=== PATIENT | male | born 1940 | race Caucasian/White ===

== ENCOUNTER 2023-09-26 06:14 | Emergency (ER) | payer MEDICARE, BC, SELFPAY ==
[2023-09-26] VITALS (14 sets, daily range): BP systolic 118–162; BP diastolic 58–98; BMI 24.6
--- NOTE | 2023-09-26 07:18 | ED.GENMED ---
History of Present Illness
<JEFFREY Gill - Last Filed: 09/26/23 14:03>
General
Chief Complaint: Chest Pain
Source: patient and spouse
Exam Limitations: none
Time Seen by Provider: 09/26/23 07:12
Nursing documentation reviewed up to this point in time: agreed with
Travel History
Have you had any contact with someone who has COVID-19?: No
Do you have any symptoms of coronavirus? Fever > 100 degrees, chills, cough, shortness of breath, sore throat, loss of taste or smell, muscle aches, or headache?: No
History of Present Illness
History of Present Illness:
Patient is a 3-year-old male with a history of MS COPD stroke presents to the ER for evaluation. reports patient woke up around 530 this morning complaining of chest pain. He had told him that he felt like something was sitting on his chest.
She reports he and he still has what sounds and a wet cough. This is not necessarily new. He has cough with his COPD. 2 cardiac troponins negative no PE they read as atelectasis PE noncardiac he has no history of cardiac disease he has COPD
Is also so he has this chronic cough no fever normal white count completely normal labs She denies any fevers.
He has no cardiac history. He is not O2 dependent. With diagnosis of MS he is wheelchair-bound.
Patient went to the ER regular. He does complain of anterior chest pain. He denies any radiation. He denies any associated shortness of breath nausea vomiting with it. Denies any injury or fall.
Past History
<JEFFREY Gill - Last Filed: 09/26/23 14:03>
Past History
ED Past Medical History: COPD, GERD, Seizures and Other (Multiple sclerosis, esophageal ulcers with upper GI bleed multiple episodes. Aspiration pneumonia, , prostatic hypertrophy, wheelchair-bound, skin cancer, history of alcohol abuse)
ED Past Surgical History: Other (Port-A-Cath, PEG tube, hemorrhoidectomy)
Social History
Tobacco: Former smoker
Alcohol: Former
Drug: None
Personal:
Living: assisted living
Employment: Retired
Family History
Family History: Other (Noncontributory)
Review of Systems
<JEFFREY Gill - Last Filed: 09/26/23 14:03>
Review of Systems
Allergies reviewed?: Yes
Other source history: family
All Other Systems: ROS reviewed and negative except as documented in HPI and ROS
Constitutional: Denies fever
Respiratory: Reports cough
Cardiac: Reports chest pain; Denies diaphoresis, palpitations or syncope
ABD/GI: Reports no symptoms
Musculoskeletal: Reports no symptoms
Skin: Reports no symptoms
Neurological: Reports no symptoms
Psychiatric: Reports no symptoms
Phy Exam
<JEFFREY Gill - Last Filed: 09/26/23 14:03>
General Physical Exam
General Presentation: no apparent distress
General age: appears stated age
General Skin: dry
Scores
<JEFFREY Gill - Last Filed: 09/26/23 14:03>
Heart Score for Chest Pain Patients
STEMI patient?: Not applicable
Course
<JEFFREY Gill - Last Filed: 09/26/23 14:03>
Orders/Labs/Results
Orders:
Orders
09/26/23 06:21
Electrocardiogram (*1) Urgent
Reason for Study: Chest Pain
09/26/23 06:22
EKG- Treatment ONCE
09/26/23 06:33
Complete Blood Count/With Diff Urgent
09/26/23 07:05
Troponin I Urgent
09/26/23 07:06
Comprehensive Metabolic Panel Urgent
09/26/23 07:10
CR Chest - 2 Views Urgent
Comment:
Reason For Exam: chest pain and cough
09/26/23 07:39
Ketorolac [Toradol] 15 mg IV NOW STA
09/26/23 08:16
CT Chest Pe Study Urgent
Comment:
Reason For Exam: cp bedbound
09/26/23 10:08
EKG [Electrocardiogram (*1)] Urgent
Reason for Study: Chest Pain
EKG- Treatment ONCE
09/26/23 10:14
Troponin I Urgent
09/26/23 10:26
Morphine Sulfate 2 mg IV NOW STA
09/26/23 12:21
Rectal Temp- Treatment ONCE
09/26/23 12:22
COVID-19 Antigen Urgent
Source: Nasal Swab
UA Reflex to Culture [Urinalysis Reflex To Culture] Urgent
Date Specimen was Collected: 09/26/23
Time Specimen was Collected: 12:22
Urine Microscopic Reflex Cult Urgent
Influenza A+B Rapid Molecular Urgent
FRANKLYN Source: Nasal Swab
Specimen Description:
09/26/23 13:40
Acetaminophen [Tylenol] 650 mg PO NOW STA
09/26/23 13:52
0.9% Sodium Chloride 500 ml [Nss] 500 ml IV BOLUS
09/26/23 13:56
Azithromycin [Zithromax] 500 mg PO NOW STA
Abnormal Lab Results
09/26/23 09/26/23
06:33 12:22
Absolute Neuts (auto) 9.0 H 10^3/uL
(1.4-6.5)
Absolute Lymphs (auto) 0.8 L 10^3/uL
(1.2-3.4)
Neutrophils % 86.1 H %
(42.2-75.2)
Lymphocytes % 7.9 L %
(20.5-51.1)
Leukocyte Esterase Rfl Trace A
(Negative)
09/26/23 06:33
09/26/23 07:06
Vital Signs
Initial and Last Documented VS:
Initial Vital Signs
Pulse Resp Pulse Ox
88 18 93
09/26/23 06:18 09/26/23 06:18 09/26/23 06:18
Last Documented Vital Signs
Temp Pulse Resp BP Pulse Ox
101.5 F H 96 20 157/71 98
09/26/23 12:21 09/26/23 10:25 09/26/23 10:25 09/26/23 10:25 09/26/23 10:25
Mid Level Developer consulted with Physician
Mid Level Developer consulted with physician?: Yes
Name of Physician Consulted: augustine
<Thomas Schreiber, DO - Last Filed: 09/26/23 11:25>
Orders/Labs/Results
Orders:
Orders
09/26/23 06:21
Electrocardiogram (*1) Urgent
Reason for Study: Chest Pain
09/26/23 06:22
EKG- Treatment ONCE
09/26/23 06:33
Complete Blood Count/With Diff Urgent
09/26/23 07:05
Troponin I Urgent
09/26/23 07:06
Comprehensive Metabolic Panel Urgent
09/26/23 07:10
CR Chest - 2 Views Urgent
Comment:
Reason For Exam: chest pain and cough
09/26/23 07:39
Ketorolac [Toradol] 15 mg IV NOW STA
09/26/23 08:16
CT Chest Pe Study Urgent
Comment:
Reason For Exam: cp bedbound
09/26/23 10:08
EKG [Electrocardiogram (*1)] Urgent
Reason for Study: Chest Pain
EKG- Treatment ONCE
09/26/23 10:14
Troponin I Urgent
09/26/23 10:26
Morphine Sulfate 2 mg IV NOW STA
09/26/23 12:21
Rectal Temp- Treatment ONCE
09/26/23 12:22
COVID-19 Antigen Urgent
Source: Nasal Swab
UA Reflex to Culture [Urinalysis Reflex To Culture] Urgent
Date Specimen was Collected: 09/26/23
Time Specimen was Collected: 12:22
Urine Microscopic Reflex Cult Urgent
Influenza A+B Rapid Molecular Urgent
FRANK[place]N Source: Nasal Swab
Specimen Description:
09/26/23 13:40
Acetaminophen [Tylenol] 650 mg PO NOW STA
09/26/23 13:52
0.9% Sodium Chloride 500 ml [Nss] 500 ml IV BOLUS
09/26/23 13:56
Azithromycin [Zithromax] 500 mg PO NOW STA
Abnormal Lab Results
09/26/23 09/26/23
06:33 12:22
Absolute Neuts (auto) 9.0 H 10^3/uL
(1.4-6.5)
Absolute Lymphs (auto) 0.8 L 10^3/uL
(1.2-3.4)
Neutrophils % 86.1 H %
(42.2-75.2)
Lymphocytes % 7.9 L %
(20.5-51.1)
Leukocyte Esterase Rfl Trace A
(Negative)
09/26/23 06:33
09/26/23 07:06
Vital Signs
Initial and Last Documented VS:
Initial Vital Signs
Pulse Resp Pulse Ox
88 18 93
09/26/23 06:18 09/26/23 06:18 09/26/23 06:18
Last Documented Vital Signs
Temp Pulse Resp BP Pulse Ox
101.5 F H 96 20 157/71 98
09/26/23 12:21 03/15/24 10:25 09/26/23 10:25 09/26/23 10:25 09/26/23 10:25
<JEFFREY Gill - Last Filed: 09/26/23 14:03>
MDM/Problems Addressed
Differential Diagnosis Includes:
Not limited to muscular pain, CAD, PE, exacerbation of COPD, pneumonia
MDM/Problems Addressed:
Patient is 83-year-old male with history of MS who uses wheelchair but does not ambulate. He had complained of chest pain which is what prompted him to come to the ER. giving history. Patient presents awake alert no acute distress normal
cardiac troponin no acute findings on EKG.PE study as patient is high risk was done which is negative for PE does show moderate to severe changes of emphysema patchy parenchymal opacity within the inferior lungs bilaterally likely representing
atelectasis. reports no history of fevers. He does have a chronic cough from COPD. Patient arrives in no acute distress he does complain of mild anterior chest pain no audible cough here in the ER he is not hypoxic nontachypneic
nontachycardic with a normal white count stable hemoglobin no acute findings on electrolytes. Patient had 2 Negative cardiac troponins.
Symptoms are possibly muscular as patient does have a lot of coughing as per and again this is not new. Patient was given low-dose morphine for pain resting here no acute distress no obvious findings on workup. Patient was eval by ED
attending stable for discharge home. No cardiac history will d/c with hotline
12:20: Prior to d/c pt started with fever. will check covid/flu and urinalysis.
1330: Patient is negative for COVID-negative for flu. Complete urinalysis pending however does not appear to be infected. As discussed with ED physician with symptoms of cough and fever likely viral syndrome however will start on Zithromax however
safe for discharge home. I spoke with who is agreeable to plan of care he is to return if any worsening of symptoms and follow-up with family doctor.
Patient was given Tylenol here for fever along with Zithromax fluids.
Chronic conditions affecting care:
MS wheelchair bound
<JEFFREY Gill - Last Filed: 09/26/23 14:03>
*Radiology
Radiology exam reviewed: radiology read reviewed
*Pulse Oximetry
Patient hypoxic: no
*EKG
Interpreted by ED Provider?: Yes
Comparison EKG: no comparison EKG present
Heart Rate: 89
Rate: normal
Rhythm: sinus
QRS Pattern: normal QRS
Ischemia: no ischemia
*Critical Care Note
Total Time (30-74mins, 75-104mins- exclusive of procedures): Not Applicable
Data Reviewed
Review of Other/Old Records Reveals: Discharge Summary
Source: patient and spouse
ED Attending Note
<JEFFREY Gill - Last Filed: 09/26/23 14:03>
-
Portions of this chart may have been created with voice recognition software.� Occasional wrong word or��sound alike� substitutions may have occurred due to the inherent limitations of voice recognition software.
<Thomas Schreiber DO - Last Filed: 09/26/23 11:25>
ED Attending Note
Patient seen and examined by attending physician: Yes
I performed the substantive portion of visit, reviewed & personally made and approve the management plan that is documented in note by myself or OBDULIA.: Yes
ED Attending Note:
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
Discharge Plan
Departure
Patient Disposition: Home (Routine Discharge)
Date of Disposition: 09/26/23
Time of Disposition: 11:36
Patient with high blood pressure during this ER visit?: Yes
Condition: Fair
Covid-19: Not Applicable
Discharge Problem:
Chest pain, Cough
Instructions: Cough, Adult (DC), Chest Pain CBC Follow Up
Prescriptions:
New
azithromycin [Zithromax] 250 mg tablet
250 mg PO DAILY Qty: 4 0RF
No Action
atorvastatin 10 MG tablet
10 mg PO HS
cyanocobalamin (vitamin B-12) 1,000 MCG tablet
1,000 mcg PO DAILY
pramipexole 0.25 MG tablet
0.25 mg PO TID@0800,1200,1800
cholecalciferol (vitamin D3) 2,000 UNITS tablet
2,000 unit PO DAILY
acetaminophen [Tylenol Extra Strength] 500 MG tablet
650 mg PO Q4H PRN (Reason: mild pain/fever)
albuterol sulfate 2.5 MG/3 ML solution for nebulization
2.5 mg inhalation R TID
ondansetron HCl 4 MG tablet
8 mg PO Q8H PRN (Reason: nausea/vomiting)
baclofen 10 MG tablet
10 mg PO TID@0800,1200,2200
multivitamin with folic acid [Tab-A-Huseyin] 1 TABLET tablet
1 tab PO DAILY
ferrous sulfate [FeroSul] 325 MG tablet
325 mg PO DAILY
gabapentin 600 mg tablet
600 mg PO DAILY
omeprazole 40 mg capsule,delayed release(DR/EC)
40 mg PO DAILY
finasteride 5 mg tablet
5 mg PO DAILY
Trelegy Ellipta 100-62.5-25 mcg Blister With Device
1 inh INHALATION DAILY
pramipexole 0.5 mg Tablet
0.5 mg PO HS
baclofen 10 mg Tablet
5 mg PO QPM
docusate sodium [Colace] 100 mg Capsule
100 mg PO Q48H
guaifenesin [Mucinex] 600 mg Tablet Extended Release 12hr
600 mg PO BID
diazepam 2 mg tablet
2 - 4 mg PO BID PRN (Reason: muscle spasm) Qty: 10 0RF
aspirin 81 mg Tablet,Chewable
81 mg PO DAILY
Referrals:
Ashish Lucas DO [Family Provider] -
Activity Restrictions/Additional Instructions:
As discussed patient has had a cough however there are no actual findings of pneumonia on x-ray however due to low-grade fever will start on a Zithromax. Patient was given first dose of Zithromax here in the ER patient is to take 1 dose daily for
the next 4 days starting tomorrow.
Patient may have Tylenol as needed however patient is to return if any worsening symptoms including difficulty breathing worsening fevers or any concerns.
Follow-up with family doctor in the next 2 days for reevaluation
Interventions
Interventions:
*Risk Screen - Suicide Last Done: 09/26/23 06:27
*General Assessment Last Done: 09/26/23 06:28
*Neglect/Abuse Screening Last Done: 09/26/23 06:27
ED- Fall Risk Assessment Last Done: 09/26/23 06:23
*ED COVID-19 Vaccine History Last Done: 09/26/23 06:28
ED- Cardiac Assessment Last Done: 09/26/23 06:23
[2023-09-26 07:32] LABS: ALT (SGPT) 24 U/L (0-50); AST (SGOT) 28 U/L (17-59); Albumin 4.1 g/dl (3.5-5.0); Alkaline Phosphatase 101 U/L (38-126); Blood Urea Nitrogen 17 mg/dl (9-20); Calcium 9.9 mg/dl (8.4-10.2); Carbon Dioxide 28 mmol/L (22-30); Chloride 104 mmol/L (98-107); Estimated Creatinine Clearance 42 ml/min; Glucose 91 mg/dl (70-99); Potassium 4.7 mmol/L (3.5-5.1); Sodium 138 mmol/L (135-145); Total Bilirubin 0.7 mg/dl (0.2-1.3); eGFR 55.19
[2023-09-26 07:39] LABS: % Basophils 0.6 % (0-2); % Eosinophils 1.1 % (0-6); % Immature Granulocytes 0.4 % (0-0.5); % Lymphocytes 7.9 % (20.5-51.1); % Monocytes 3.9 % (1.7-9.3); % Neutrophils 86.1 % (42.2-75.2); Absolute Basophils 0.1 10^3/uL (0-0.2); Absolute Eosinophils 0.1 10^3/uL (0-0.7); Absolute Lymphocytes 0.8 10^3/uL (1.2-3.4); Absolute Monocytes 0.4 10^3/uL (0.1-0.6); Hematocrit 47.2 % (39.0-52.0); Hemoglobin 16.4 g/dL (13.0-18.0); Mean Corp Hgb Conc. 34.7 g/dL (33.0-37.0); Mean Corpuscular Hgb 30.1 pg (27.0-31.0); Mean Corpuscular Volume 86.8 fL (80.0-94.0); Nucleated Red Blood Cells % 0 % (-); Red Blood Cell Count 5.44 10^6/uL (4.70-6.10); Red Cell Dist. Width 13.1 % (11.5-14.5); White Blood Cell Count 10.5 10^3/uL (4.8-10.8)
[2023-09-26 07:42] LABS: Troponin I < 0.012 ng/ml
[2023-09-26] MEDS: TORADOL 15 MG IV (07:44)
[2023-09-26 07:59] LABS: Mean Platelet Volume 9.9 fL (7.4-10.4); Platelet Count 194 10^3/uL (130-400)
[2023-09-26] MEDS: MORPHINE SULFATE 2 MG IV (10:33)
[2023-09-26 10:55] LABS: Troponin I < 0.012 ng/ml
[2023-09-26 12:53] LABS: COVID-19 Antigen Negative (Negative); Urine Albumin Trace (Neg - Trace); Urine Bilirubin Negative (Negative); Urine Character Clear (Clear); Urine Color Yellow; Urine Glucose Negative (Negative); Urine Ketone Negative (Negative); Urine Leukocyte Trace (Negative); Urine Nitrite Negative (Negative); Urine Occult Blood Negative (Negative); Urine Urobilinogen Negative (Neg - 1+)
[2023-09-26 13:47] LABS: Urine Red Blood Cell 0-2 /HPF (0-2); Urine White Cell 0-2 /HPF (0-5)
[2023-09-26] MEDS: ZITHROMAX 500 MG PO (14:01)
[2023-09-26] MEDS: NSS 500 IV (14:02)
[2023-09-26] MEDS: TYLENOL 650 MG PO (14:03)
== END 2023-09-26 16:36 | disposition home or self-care (01) ==
LOC: EMR 06:14
PROVIDERS: Nurse Practitioner; EMERGENCY PHYSICIAN Emergency Medicine; FAMILY PHYSICIAN Family Medicine
DX: R05.9 Cough, unspecified (principal); R07.89 Other chest pain; R50.9 Fever, unspecified; R03.0 Elevated blood-pressure reading, without diagnosis of hypertension; G35 Multiple sclerosis; J43.9 Emphysema, unspecified; Z87.891 Personal history of nicotine dependence; Z11.52 Encounter for screening for COVID-19; Z99.3 Dependence on wheelchair
CPT/HCPCS: 99285; 96374; 96375; 96361; 71046; 71275; 80053; 81003; 81015; 84484; 85025; 87502; 87811; 93005; Q9967

== ENCOUNTER 2024-08-10 10:18 | Inpatient (IN) | payer MEDICARE, BC, SELFPAY ==
[2024-08-10] VITALS (14 sets, daily range): BP systolic 86–157; BP diastolic 56–102; BMI 24.6; BMI 25.2
--- NOTE | 2024-08-10 06:03 | ED.GENMED ---
History of Present Illness
General
Chief Complaint: Cold/Flu/URI Symptoms
Source: patient
Exam Limitations: none
Time Seen by Provider: 08/10/24 05:52
History of Present Illness
History of Present Illness:
83-year-old male complaining of cough chest pain shortness of breath started yesterday. Feels achy. Myalgias. No pleuritic pain. No back pain.
Past History
Past History
ED Past Medical History: COPD, GERD, Seizures and Other (Multiple sclerosis, esophageal ulcers with upper GI bleed multiple episodes. Aspiration pneumonia, , prostatic hypertrophy, wheelchair-bound, skin cancer, history of alcohol abuse)
ED Past Surgical History: Other (Port-A-Cath, PEG tube, hemorrhoidectomy)
Social History
Tobacco: Former smoker
Alcohol: Former
Drug: None
Personal:
Living: assisted living
Employment: Retired
Family History
Family History: Other (Noncontributory)
Review of Systems
Review of Systems
All Other Systems: Not applicable
Constitutional: Reports fatigue
Respiratory: Reports cough and trouble breathing
Cardiac: Reports chest pain; Denies syncope
Phy Exam
Physical Exam
Physical Exam:
GENERAL: Alert and oriented. Generally very weak appearing
EYE: Orbits normal.
NECK: Supple, no significant adenopathy.
ENT: Pharynx without erythema
CARDIAC: Regular rate and rhythm without any obvious murmurs.
LUNGS: Mild tachypnea with mild end expiratory wheezing diffusely and dry crackles in the bases
ABDOMEN: Soft, without focal tenderness or distention
NEUROLOGICAL: Alert and oriented , grossly non-focal
SKIN: Warm and dry, no rash or lesion, no discoloration, skin intact.
MUSCULOSKELETAL: No edema,no deformity.Good color
PSYCH: Normal and appropriate interaction.
Sepsis
Sepsis Screening
Sepsis Assessment: Sepsis Ruled Out
Sepsis Screen
Sepsis Screen: Sepsis Ruled Out
Date: 08/10/24
Time: 12:59
Course
Orders/Labs/Results
Orders:
Orders
08/10/24 05:32
Electrocardiogram (*1) Urgent
Reason for Study: Shortness of Breath
08/10/24 05:33
EKG- Treatment ONCE
08/10/24 05:36
Complete Blood Count/With Diff Urgent
08/10/24 05:38
COVID-19 Antigen Urgent
Source: Nasal Swab
INF RAPID [Influenza A+B Rapid Molecular] Urgent
FRANKLYN Source: Nasal Swab
Specimen Description:
08/10/24 05:51
Cardiac Monitoring- Treatment ONCE
IV Insert/Care/Rem.- Treatment PRN
O2 Therapy [RESP] Urgent
Titrate/Wean O2 to maintain O2 sat greater than (%): 93
Special Instructions: TO MAINTAIN CONTINUOUS O2 SATS > OR = 93%
Pulse Ox/cont/shift [RESP] Urgent
Quantity: 1
Special Instructions: CONTINUOUS
08/10/24 06:06
Lactic Acid Q4H
Comment: ON ICE, CANCEL 2ND ORDER IF FIRST LACTIC ACID LEVEL <2
Blood Culture Urgent
FRANKLYN Source: Blood/Venous
Specimen Description:
08/10/24 06:08
CXR Port [CR Chest Portable - 1 View] Urgent
Comment:
Reason For Exam: Cough/short of breath
Reason Study Needs to be Portable: Patient Unstable
08/10/24 06:09
Albuterol Nebs [Ventolin Nebules] 2.5 mg INH R NOW STA
08/10/24 06:26
Add On- LAB Urgent
Tests Added?: probnp
08/10/24 06:31
RSV [Respiratory Syncytial Virus] Urgent
FRANK[place]N Source: Nasal Swab
Specimen Description:
Date Specimen was Collected: 08/10/24
Time Specimen was Collected: 06:28
08/10/24 06:58
Urinalysis Reflex To Culture Urgent
Date Specimen was Collected: 08/10/24
Time Specimen was Collected: 05:51
Urine Microscopic Reflex Cult Urgent
08/10/24 07:28
Comprehensive Metabolic Panel Urgent
Troponin I Urgent
08/10/24 08:21
Albuterol Sulfate [Ventolin Nebules] 7.5 mg INH R NOW STA
Dexamethasone Sod Phosphate [Decadron] 8 mg IV NOW STA
O2 Therapy [RESP] Stat
Titrate/Wean O2 to maintain O2 sat greater than (%): 94
08/10/24 09:09
Admit/Transfer Patient As Directed
Co-Sign Provider:
Level of Care: Inpatient admission
Assign to:: Telemetry
Physician / Group: Boy
Diagnosis: Chest pain
Reason for Telemetry: Chest Pain syndromes
Date to Stop Telemetry: 08/12/24
Time to Stop Telemetry: 11:00
Reason for Hospitalization: Above
Expected length of stay greater than two midnights?: Yes
ELOS- Estimated Length of Stay in days: 2
I certify the patient meets the requirements for IP care: Yes
PRN Pain Medication Management As Directed
May give lesser potent ordered pain med per pt: Yes
preference::
Protocol:: Medication orders for pain may be administered in a
manner that supports deferring to patient preference
when the pt is:
- Requesting an ordered lesser potent pain medication.
Least to most potent pain medications are defined
as: acetaminophen < NSAID < tramadol < opioids
(morphine, oxycodone, hydromorphone).
- Requesting a lesser dose of the same medication IF
ORDERED.
- Requesting a less intrusive route of administration
if both routes are prescribed by the provider (PO <
IV).
08/10/24 09:10
D-Dimer Urgent
08/10/24 09:18
Code Status As Directed
Resuscitation Status: Full Code
08/10/24 09:53
Echo 2D MMode Color/Doppler Routine
Reason for Study: Chest pain
08/10/24 Lunch
Cholesterol Lowering
At Your Request: Limited Participation
08/10/24 10:22
Acetaminophen [Tylenol] 650 mg PO Q4H PRN
Aspirin Chewable [Low Strength Aspirin] 81 mg PO DAILY
Dextrose 50%-Water [Dextrose 50% Syringe] 12.5 grams IV [id number] PRN
Diazepam [Valium] 2 mg PO BID PRN
Glucagon [GlucaGen] 1 mg IM PRN PRN
Ondansetron HCl [Zofran] 8 mg PO Q8H PRN
08/10/24 10:22
Echo 2D MMode Color/Doppler Routine
Reason for Study: chest pain
CARDIOLOGY CONSULT Routine
Consulting Provider: Perez Johnson
Was physician already notified: Yes
Bedside Glucose Monitoring As Directed
Frequency: AC&HS
Additional Instructions:: Change to q6h if pt on TPN, tube feeding or not eating
Physical Therapy Consult [Pt Eval And Treat] Routine
Activity Level: Ambulate
Speech Therapy Eval & Treat Routine
DX Deep Vein Thrombosis Video Routine
08/10/24 11:30
Insulin Aspart Corrective Low [Novolog Flexpen-Low Resistance] See Protocol SC AC
08/10/24 11:32
Procalcitonin Routine
PCT Algorithmm Indication: Respiratory
Troponin I Routine
08/10/24 12:00
Baclofen [Lioresal] 10 mg PO TID@0800,1200,2200
Ipratropium/Albuterol Sulfate [Duoneb] 3 ml INH R QID
Pramipexole [Mirapex] 0.25 mg PO TID@0800,1200,1800
08/10/24 13:00
Gabapentin [Neurontin] 600 mg PO DAILY
08/10/24 16:00
Dexamethasone Sod Phosphate [Decadron] 4 mg IV Q8H
08/10/24 18:00
Baclofen [Lioresal] 5 mg PO QPM
Enoxaparin Sodium [Lovenox] 40 mg SC QPM
08/10/24 18:22
Troponin I Q8H
08/10/24 20:00
Guaifenesin [Mucinex] 600 mg PO BID
08/10/24 22:00
Atorvastatin [Lipitor] 10 mg PO HS
Pramipexole [Mirapex, Generic] 0.5 mg PO HS
08/11/24 06:00
Glycohemoglobin (HgbA1c) IN AM
08/11/24 08:00
Cholecalciferol (Vitamin D3) [VITAMIN D3 (cholecalciferol)] 50 mcg PO DAILY
Cyanocobalamin [Vitamin B-12] 1,000 mcg PO DAILY
Docusate Sodium [Colace] 100 mg PO Q48H
Ferrous Sulfate [Feosol] 325 mg PO DAILY
Finasteride [Proscar] 5 mg PO DAILY
Multivitamin [Theragran] 1 tablet PO DAILY
Pantoprazole [Protonix] 40 mg PO DAILY
hrogyoakvig-ejnfdhawi-iczjbeby [Trelegy Ellipta] 1 inh INH DAILY
08/12/24 11:00
DC Protocol for Telemetry ONCE
Abnormal Lab Results
08/10/24 08/10/24 08/10/24
05:36 06:58 07:28
Absolute Neuts (auto) 8.1 H 10^3/uL
(1.4-6.5)
Absolute Lymphs (auto) 1.0 L 10^3/uL
(1.2-3.4)
Neutrophils % 82.1 H %
(42.2-75.2)
Lymphocytes % 10.3 L %
(20.5-51.1)
Total Protein 5.8 L g/dl
(6.3-8.2)
Leukocyte Esterase Rfl Trace A
(Negative)
Urine Albumin (Reflex) 1+ A
(Neg - Trace)
08/10/24 05:36
08/10/24 07:28
Vital Signs
Initial and Last Documented VS:
Initial Vital Signs
Pulse Resp
85 16
08/10/24 05:44 08/10/24 05:44
Last Documented Vital Signs
Temp Pulse Resp BP Pulse Ox
98.8 F 82 22 135/68 90
08/10/24 08:00 08/10/24 08:00 08/10/24 06:15 08/10/24 08:00 08/10/24 08:00
MDM/Problems Addressed
Differential Diagnosis Includes:
Patient's primary symptoms are cough congestion shortness of breath myalgias fatigue and weakness. Potential etiologies include infectious including bacterial, viral including COVID influenza RSV. Doubt primary cardiac issue although will be
evaluated. Based on his appearance and history he likely will need admission for further care. Workup in progress
*Radiology
Radiology exam reviewed: preliminary read by ED provider (Negative)
*Pulse Oximetry
Patient hypoxic: no (Borderline)
*EKG
Interpreted by ED Provider?: Yes
Comparison EKG: no changes
Heart Rate: 90
Rate: normal
Rhythm: sinus
[place]: normal axis
Interval: normal interval
QRS Pattern: normal QRS
Ischemia: no ischemia
*Critical Care Note
Total Time (30-74mins, 75-104mins- exclusive of procedures): Not Applicable
Data Reviewed
Review of Other/Old Records Reveals: Labs, Records, Radiology Studies, Testing and Discharge Summary
Update Note
Update Note:
This appears to be a viral syndrome/COPD exacerbation. Remain tachypneic at rest with pulse ox is borderline near 90. Warrants inpatient management.
ED Attending Note
-
Portions of this chart may have been created with voice recognition software.� Occasional wrong word or��sound alike� substitutions may have occurred due to the inherent limitations of voice recognition software.
Discharge Plan
Departure
Patient Disposition: Admit
Date of Disposition: 08/10/24
Time of Disposition: 08:23
Presentation/result/management discussed w/ accepting MD/DO: Hospitalist
Discharge Problem:
COPD exacerbation
Interventions
Interventions:
*Risk Screen - Suicide Last Done: 08/10/24 05:45
*General Assessment Last Done: 08/10/24 05:45
*Neglect/Abuse Screening Last Done: 08/10/24 05:45
ED- Fall Risk Assessment Last Done: 08/10/24 06:00
*ED COVID-19 Vaccine History Last Done: 08/10/24 05:45
ED- Pulmonary Assessment Last Done: 08/10/24 06:00
[2024-08-10] MEDS: VENTOLIN NEBULES 2.5 MG INH (06:27)
[2024-08-10 06:29] LABS: % Basophils 0.4 % (0-2); % Eosinophils 1.6 % (0-6); % Immature Granulocytes 0.4 % (0-0.5); % Lymphocytes 10.3 % (20.5-51.1); % Monocytes 5.2 % (1.7-9.3); % Neutrophils 82.1 % (42.2-75.2); Absolute Eosinophils 0.2 10^3/uL (0-0.7); Absolute Monocytes 0.5 10^3/uL (0.1-0.6); Absolute Neutrophils 8.1 10^3/uL (1.4-6.5); Hematocrit 44.3 % (39.0-52.0); Hemoglobin 15.1 g/dL (13.0-18.0); Mean Corp Hgb Conc. 34.1 g/dL (33.0-37.0); Mean Corpuscular Hgb 30.6 pg (27.0-31.0); Mean Corpuscular Volume 89.9 fL (80.0-94.0); Mean Platelet Volume 9.3 fL (7.4-10.4); Nucleated Red Blood Cells % 0 % (-); Platelet Count 222 10^3/uL (130-400); Red Blood Cell Count 4.93 10^6/uL (4.70-6.10); Red Cell Dist. Width 13.1 % (11.5-14.5); White Blood Cell Count 9.8 10^3/uL (4.8-10.8)
[2024-08-10 06:43] LABS: Lactic Acid 1.3 mmol/L (0.7-2.0)
[2024-08-10 06:51] LABS: COVID-19 Antigen Negative (Negative)
[2024-08-10 07:54] LABS: ALT (SGPT) 26 U/L (0-50); AST (SGOT) 26 U/L (17-59); Albumin 3.5 g/dl (3.5-5.0); Alkaline Phosphatase 84 U/L (38-126); Blood Urea Nitrogen 16 mg/dl (9-20); Calcium 9.3 mg/dl (8.4-10.2); Carbon Dioxide 27 mmol/L (22-30); Chloride 106 mmol/L (98-107); Estimated Creatinine Clearance 49 ml/min; Glucose 97 mg/dl (70-99); Potassium 4.8 mmol/L (3.5-5.1); Sodium 139 mmol/L (135-145); Total Bilirubin 0.5 mg/dl (0.2-1.3); Total Protein 5.8 g/dl (6.3-8.2); eGFR > 60.00
[2024-08-10 08:03] LABS: Troponin I 0.012 ng/ml
[2024-08-10 08:12] LABS: Urine Albumin 1+ (Neg - Trace); Urine Bilirubin Negative (Negative); Urine Character Clear (Clear); Urine Color Yellow; Urine Glucose Negative (Negative); Urine Ketone Negative (Negative); Urine Leukocyte Trace (Negative); Urine Nitrite Negative (Negative); Urine Occult Blood Negative (Negative); Urine Urobilinogen Negative (Neg - 1+)
[2024-08-10] MEDS: VENTOLIN NEBULES 7.5 MG INH (08:40)
[2024-08-10] MEDS: DECADRON 8 MG IV (08:40)
--- NOTE | 2024-08-10 09:24 | HPS.HSE ---
Family Physician
-
Family Physician: Ashish Lucas
Chief Complaint
-
Chest pain
History of Present Illness
Patient is 83 years old male with history of multiple sclerosis, COPD who presents to the emergency room with acute onset of mid sternal chest pain evening before the presentation. Patient describes pain in the midsternum pressure-like/elephant
sitting on the chest. Patient lasted through the night and resolved earlier before his visit to ED. While in ED patient was found to be short of breath with tachypnea and oxygen saturations down to 90s with chronic exam exhibit diffuse expiratory
wheezing. In addition he denies any productive cough, fever prior to presentation. Patient was treated with nebulizer, IV steroids and oxygen with improvement of symptoms.
His initial testing including ECG and serial troponin showed no ischemia. He was tested negative for COVID, RSV and influenza.
Medical History
Past Medical History
Past Medical History: Reports COPD and Other (Multiple sclerosis. Aspiration syndrome with episode of aspiration pneumonia. History of CVA. BPH.); Denies CAD
Past Surgical History: Reports None
Social History
Tobacco: Non-smoker
Alcohol: None
Drug: None
Personal:
Living: With Family
Employment: Not Employed
Family History
Family History: Not pertinent
Allergies / Home Medications
Allergies reflects when Allergies were last updated in [facility].
Home Medications with original date entered in [facility]
Allergy/Medication List:
Allergies
Allergy/AdvReac Type Severity Reaction Status Date / Time
aztreonam Allergy Hives Verified 08/10/24 05:29
Benzodiazepines Allergy somnolence, Verified 08/10/24 05:29
behavior
changes,
psychosis
cefuroxime [From Ceftin] Allergy Rash, Verified 08/10/24 05:29
tolerated
cefepime,
ceftriaxone
and
cefdinir
10/2022
clonazepam Allergy Rash Verified 08/10/24 05:29
gentamicin [Gentamicin] Allergy Rash Verified 08/10/24 05:29
ipratropium Allergy Unknown Verified 08/10/24 05:
latex [Latex] Allergy Rash Verified 08/10/24 05:29
levofloxacin Allergy Rash Verified 08/10/24 05:29
phenytoin Allergy Rash Verified 08/10/24 05:29
piperacillin [From Zosyn] Allergy Rash Verified 08/10/24 05:29
prochlorperazine Allergy lethargy, Verified 08/10/24 05:29
nausea
Sulfa (Sulfonamide Allergy Rash Verified 08/10/24 05:
Antibiotics)
Home Medications
atorvastatin 10 mg tablet 10 mg PO HS High cholesterol 05/24/17
cyanocobalamin (vitamin B-12) 1,000 mcg tablet 1,000 mcg PO DAILY Supplement 05/24/17
pramipexole 0.25 mg tablet 0.25 mg PO TID@0800,1200,1800 Neurological Condition 05/24/17
cholecalciferol (vitamin D3) 50 mcg (2,000 unit) tablet 2,000 unit PO DAILY Supplement 07/09/17
acetaminophen 500 mg tablet (Tylenol Extra Strength) 650 mg PO Q4H PRN mild pain/fever 08/21/17
albuterol sulfate 2.5 mg/3 mL (0.083 %) solution for nebulization 2.5 mg inhalation R TID Lung/breathing issues 09/10/17
baclofen 10 mg tablet 10 mg PO TID@0800,1200,2200 SPASM 02/20/18
ondansetron HCl 4 mg tablet 8 mg PO Q8H PRN nausea/vomiting 02/20/18
ferrous sulfate 325 mg (65 mg iron) tablet (FeroSul) 325 mg PO DAILY Supplement 06/14/21
multivitamin with folic acid 400 mcg tablet (Tab-A-Huseyin) 1 tab PO DAILY Supplement 06/14/21
finasteride 5 mg tablet 5 mg PO DAILY Urinary issue 07/11/22
gabapentin 600 mg tablet 600 mg PO DAILY Pain 07/11/22
omeprazole 40 mg capsule,delayed release 40 mg PO DAILY Gastrointestinal issue 07/11/22
fluticasone fur. 100 mcg-umeclid 62.5 mcg-vilant 25 mcg inhalat.powder (Trelegy Ellipta) 1 inh inhalation DAILY Lung/breathing issues 10/24/22
baclofen 10 mg tablet 5 mg PO QPM Spasm 05/07/23
diazepam 2 mg tablet 2 - 4 mg (1 - 2 x 2 mg) PO BID PRN muscle spasm #10 tabs 05/07/23
docusate sodium 100 mg capsule (Colace) 100 mg PO Q48H Constipation 05/07/23
guaifenesin 600 mg tablet, extended release 12 hr (Mucinex) 600 mg PO BID Congestion 05/07/23
pramipexole 0.5 mg tablet 0.5 mg PO HS Neurological Condition 05/07/23
aspirin 81 mg chewable tablet 81 mg PO DAILY 09/26/23
Review of Systems
-
A 12 point ROS was completed and negative except as noted: Yes
Respiratory: Reports See HPI
Cardiac: Reports See HPI
Physical Exam
Vital Signs
Vital Signs
Temp Pulse Resp BP Pulse Ox
98.8 F 82 22 135/68 90
08/10/24 08:00 08/10/24 08:00 08/10/24 06:15 08/10/24 08:00 08/10/24 08:00
Physical Exam
General: Well Developed, Well Nourished and No Apparent Distress
HEENT: NormoCephalic, Moist mucous membranes and Atraumatic
Respiratory: Wheezes (Diffuse, expiratory, mild) and Rhonchi
Cardiac: S1/S2 and Regular Rhythm; No Murmur or Rub
GI: Soft, Non Tender, Non Distended and Normal Bowel Sounds; No Organomegaly
Rectal: Deferred by Provider
Musculoskeletal: No Clubbing, No Cyanosis and No Edema
Skin: No Rash
Neuro: Awake, Alert, Oriented, AO x 3 and Nonfocal/grossly intact
Laboratory Results
-
08/10/24 05:36
08/10/24 07:28
Laboratory Results
Lactic Acid Cancelled 08/10/24 10:00
Total Bilirubin 0.5 mg/dl (0.2-1.3) 08/10/24 07:28
AST 26 U/L (17-59) 08/10/24 07:28
ALT 26 U/L (0-50) 08/10/24 07:28
Alkaline Phosphatase 84 U/L (38-126) 08/10/24 07:28
Troponin I 0.012 ng/ml 08/10/24 07:28
Impression/Plan
-
IMPRESSION:
Midsternal chest pain upon presentation.
COPD exacerbation
Acute possibly viral bronchitis.
Other conditions:
History of aspiration pneumonia
Multiple sclerosis.
Ambulatory dysfunction.
CVA by history.
BPH
PLAN:
Chest pain.
Patient describes pressure-like midsternal chest pain at rest.
No prior history of CAD.
ECG in ED with no ischemia
Troponin within normal limits.
Follow serial cardiac markers.
D-dimer.
Echocardiogram
Cardiology consultation
Continue aspirin and statin.
Shortness of breath secondary to COPD exacerbation.
Afebrile.
Saturations at the low 90s on room air with tachypnea.
Exam with diffuse expiratory wheezing.
Chest x-ray to my review with no focal infiltrates.
COVID, influenza, RSV negative in ED
Continue steroids Decadron 4 mg IV every 8 hours.
Continue short acting nebulized bronchodilator.
Continue Trelegy Ellipta
Mucolytic's.
Check procalcitonin.
Check D-dimer.
Currently no clear indication for antibiotics
Multiple sclerosis
Chronic ambulatory dysfunction, wheelchair
Continue baclofen, Neurontin, diazepam pramipexole
Physical therapy assessed
BPH.
Continue finasteride
Full code
DVT prophylaxis Lovenox
--- NOTE | 2024-08-10 09:40 | CON.CAR ---
Addendum entered and electronically signed by Perez Johnson MD 08/10/24 11:31:
Patient seen and examined in collaboration with TENNIS COACH; agree with below.
-83-year-old male with previous CVA, advanced COPD, and multiple sclerosis presenting with chest pain when coughing.
-The patient's chest pain sounds atypical, likely non-cardiac; now resolved (cough improved).
-Check second set of cardiac troponin (first set negative).
-Check echocardiogram.
-If the above are unremarkable, no further cardiac testing appears to be indicated at this time and patient can continue to follow-up routinely with his PCP.
Original Note:
Consultation
Consultation Request
Date/Time Consultation Requested: 08/10/2024 09:15
Date/Time Consultation Performed: 08/10/2024 09:45
Requesting Provider: Dr. Brunson
Performing Provider: JEFFREY Perez for Dr. Johnson
Reason for Consultation: Chest pain
Medical History
-
History of Present Illness:
Deonte Gresham is an 83-year-old male with prior right thalamic stroke (2016), advanced COPD, bronchiectasis, GILMER, dyslipidemia, and multiple sclerosis who presented to the emergency department with a chief complaint of shortness of breath. He
reported having chest pain at home which prompted cardiology consult. His chest pain occurred throughout the night with a cough. He was found to be tachypneic, hypoxic, and have an expiratory wheeze. On exam he is having no chest pain. He has
not had any chest pain since his arrival to the emergency department. His chest pain only occurred with coughing spells. Mr. Gresham is bed-bound due to his multiple sclerosis.
Past Medical History
Past Medical History: COPD (With bronchiectasis), CVA, Hypercholesterolemia and Other (GILMER, multiple sclerosis)
Social History
Tobacco: Former Smoker
Alcohol: Former
Personal:
Living: With Family
Employment: Retired
Family History
Family History: Reviewed & Not Pertinent
Allergies / Home Medications
Allergy/AdvReac Type Severity Reaction Status Date / Time
aztreonam Allergy Hives Verified 08/10/24 05:29
Benzodiazepines Allergy somnolence, Verified 08/10/24 05:29
behavior
changes,
psychosis
cefuroxime [From Ceftin] Allergy Rash, Verified 08/10/24 05:29
tolerated
cefepime,
ceftriaxone
and
cefdinir
10/2022
clonazepam Allergy Rash Verified 08/10/24 05:29
gentamicin [Gentamicin] Allergy Rash Verified 08/10/24 05:29
ipratropium Allergy Unknown Verified 08/10/24 05:29
latex [Latex] Allergy Rash Verified 08/10/24 05:29
levofloxacin Allergy Rash Verified 08/10/24 05:29
phenytoin Allergy Rash Verified 08/10/24 05:29
piperacillin [From Zosyn] Allergy Rash Verified 08/10/24 05:29
prochlorperazine Allergy lethargy, Verified 08/10/24 05:29
nausea
Sulfa (Sulfonamide Allergy Rash Verified 08/10/24 05:29
Antibiotics)
�Medication �Instructions �Recorded �Confirmed �Type
atorvastatin 10 mg tablet 10 mg PO HS High cholesterol 05/24/17 08/10/24 History
cyanocobalamin (vitamin B-12) 1,000 mcg PO DAILY Supplement 05/24/17 08/10/24 History
1,000 mcg tablet
pramipexole 0.25 mg tablet 0.25 mg PO TID@0800,1200,1800 05/24/17 08/10/24 History
Neurological Condition
cholecalciferol (vitamin D3) 50 2,000 unit PO DAILY Supplement 07/09/17 08/10/24 History
mcg (2,000 unit) tablet
acetaminophen 500 mg tablet 650 mg PO Q4H PRN mild pain/fever 08/21/17 08/10/24 History
(Tylenol Extra Strength)
albuterol sulfate 2.5 mg/3 mL 2.5 mg inhalation R TID 09/10/17 08/10/24 History
(0.083 %) solution for nebulization Lung/breathing issues
baclofen 10 mg tablet 10 mg PO TID@0800,1200,2200 SPASM 02/20/18 08/10/24 History
ondansetron HCl 4 mg tablet 8 mg PO Q8H PRN nausea/vomiting 02/20/18 08/10/24 History
ferrous sulfate 325 mg (65 mg 325 mg PO DAILY Supplement 06/14/21 08/10/24 History
iron) tablet (FeroSul)
multivitamin with folic acid 400 1 tab PO DAILY Supplement 06/14/21 08/10/24 History
mcg tablet (Tab-A-Huseyin)
finasteride 5 mg tablet 5 mg PO DAILY Urinary issue 07/11/22 08/10/24 History
gabapentin 600 mg tablet 600 mg PO DAILY Pain 07/11/22 08/10/24 History
omeprazole 40 mg capsule,delayed 40 mg PO DAILY Gastrointestinal 07/11/22 08/10/24 History
release issue
fluticasone fur. 100 mcg-umeclid 1 inh inhalation DAILY 10/24/22 08/10/24 History
62.5 mcg-vilant 25 mcg Lung/breathing issues
inhalat.powder (Trelegy Ellipta)
baclofen 10 mg tablet 5 mg PO QPM Spasm 05/07/23 08/10/24 History
diazepam 2 mg tablet 2 - 4 mg (1 - 2 x 2 mg) PO BID PRN 05/07/23 08/10/24 Rx
muscle spasm #10 tabs
docusate sodium 100 mg capsule 100 mg PO Q48H Constipation 05/07/23 08/10/24 History
(Colace)
guaifenesin 600 mg tablet, 600 mg PO BID Congestion 05/07/23 08/10/24 History
extended release 12 hr (Mucinex)
pramipexole 0.5 mg tablet 0.5 mg PO HS Neurological Condition 05/07/23 08/10/24 History
aspirin 81 mg chewable tablet 81 mg PO DAILY 09/26/23 08/10/24 History
Review of Systems
-
History Source: Patient
All other systems: Negative unless noted
Constitutional: Fatigue
EENT: No Symptoms
Respiratory: Cough and Trouble Breathing
Cardiac: No Symptoms
Abdomen/GI: No Symptoms
: No Symptoms
Musculoskeletal: No Symptoms
Skin: No Symptoms
Neurological: No Symptoms
Endocrine: No Symptoms
Hematologic/Lymphatic: No Symptoms
Physical Exam
Vital Signs
Temp Pulse Resp BP Pulse Ox
98.8 F 82 22 135/68 90
08/10/24 08:00 08/10/24 08:00 08/10/24 06:15 08/10/24 08:00 08/10/24 08:00
Lab Results
08/10/24 05:36
08/10/24 07:28
Troponin I 0.012 ng/ml 08/10/24 07:28
Physical Exam
General: Well Developed, Well Nourished, No Apparent Distress and Comfortable
HEENT: Normocephalic and Anicteric
Respiratory: Wheezes and Accessory Resp Muscle Use
Cardiac: S1/S2 and Regular Rhythm; Negative Peripheral Edema
Breast: Deferred by me
GI: Soft, Non Tender, Non Distended and Normal Bowel Sounds
Rectal: Deferred by Provider
Genito-urinary: No Costovertebral Tender
Musculoskeletal: No Clubbing, No Cyanosis and No Edema
Skin: Warm and Dry
Neuro: AO x 3
Hematologic/Lymphatic: No Lymphadenopathy
Psych: Calm
Impression / Plan
-
IMPRESSION/PLAN: 83M with prior right thalamic stroke (2016), advanced COPD, bronchiectasis, GILMER, dyslipidemia, and multiple sclerosis who presented to the emergency department with a chief complaint of SOB. Cardiology consulted for c/o CP.
Shortness of breath, in the setting of acute COPD exacerbation, per primary service
-Negative for influenza, COVID-19, and RSV
Chest pain
-Troponin 0.012, trend
-Chest pain occurs with coughing, sounds pleuritic in nature, no chest pain since arrival to the emergency department
-EKG does not show acute ischemia
-TTE
Prior right thymic stroke
Multiple sclerosis, follows with Dr. Haley
Former smoker, continue cessation recommended
Data Reviewed
-
Labs: Labs Reviewed by me
Old Records: Reviewed
[2024-08-10 10:13] LABS: D-Dimer 0.29 ug/mlFEU (0.00-0.50)
[2024-08-10 10:27] LABS: Urine Squamous Cell 0-2 /LPF (Few)
[2024-08-10 10:29] LABS: Urine Amorphous Seen
[2024-08-10 10:31] LABS: Urine Mucus Few
[2024-08-10 10:32] LABS: Urine Red Blood Cell 0-2 /HPF (0-2)
--- NOTE | 2024-08-10 10:40 | PTOTSP ---
Speech Language Pathology
Pt seen for clinical bedside swallow evaluation. Nine previous VSEs completed from July 2011 to October 2022. On 5 most recent VSEs, regular solids/thin liquids were recommended. Aspiration of thin liquids noted in 2011 and was on mildly thick
liquids on multiple VSE recommendations from [id number]. reported no difficulty with swallowing at home with continued tolerance of regular solids/thin liquids.
Seen with breakfast tray of regular solids and thin liquids. Adequate mastication, bolus formation, and A-P transit noted with no oral residue. No overt signs of aspiration. Increased WOB noted with wheezing with P.O. intake. stated this is
typical. WBC WNL and CXR without evidence of PNA.
Recommend:
(1) Regular solids/thin liquids
(2) General aspiration precautions
(3) Meds crushed in puree if able per pt preference
(4) COD CLERK to sign off. Please reconsult as indicated
[2024-08-10 12:22] LABS: Procalcitonin < 0.05 ng/ml (0.0-0.25)
[2024-08-10] MEDS: DUONEB 3 ML INH ×3 (12:44→21:00)
[2024-08-10] MEDS: MIRAPEX 0.25 MG PO ×2 (12:44→18:23)
[2024-08-10] MEDS: LOW STRENGTH ASPIRIN 81 MG PO (12:44)
[2024-08-10] MEDS: NEURONTIN 600 MG PO (12:44)
[2024-08-10] MEDS: LIORESAL 10 MG PO ×2 (12:55→21:00)
[2024-08-10 13:18] LABS: Glucose - Point of Care 152 mg/dl (70-99)
[2024-08-10 13:28] LABS: Troponin I < 0.012 ng/ml
[2024-08-10] MEDS: NOVOLOG FLEXPEN-LOW RESISTANCE SC (14:45)
[2024-08-10 16:07] LABS: Glucose - Point of Care 233 mg/dl (70-99)
[2024-08-10] MEDS: DECADRON 4 MG IV (16:48)
[2024-08-10] MEDS: NOVOLOG FLEXPEN-LOW RESISTANCE 2 UNITS SC (18:22)
[2024-08-10] MEDS: LOVENOX 40 MG SC (18:22)
[2024-08-10] MEDS: LIORESAL 5 MG PO (18:23)
[2024-08-10] MEDS: MUCINEX 600 MG PO (20:59)
[2024-08-10] MEDS: LIPITOR 10 MG PO (21:00)
[2024-08-10] MEDS: MIRAPEX, GENERIC 0.5 MG PO (21:27)
[2024-08-10 22:05] LABS: Glucose - Point of Care 158 mg/dl (70-99)
[2024-08-11 00:02] VITALS: BP 130/85
[2024-08-11] MEDS: DECADRON 4 MG IV ×3 (01:04→17:45)
[2024-08-11 03:46] VITALS: BP 148/80
[2024-08-11] MEDS: XOPENEX 1.25 MG INHALANT SOLUTION INH ×3 (07:14→19:23)
[2024-08-11 07:55] VITALS: BP 158/92
[2024-08-11 08:00] LABS: Glucose - Point of Care 122 mg/dl (70-99)
[2024-08-11] MEDS: NOVOLOG FLEXPEN-LOW RESISTANCE SC (09:06)
[2024-08-11] MEDS: FLUSH (NSS) 2 FLUSH IV (09:07)
[2024-08-11] MEDS: COLACE 100 MG PO (09:07)
[2024-08-11] MEDS: FLUSH (NSS) 1 FLUSH IV (09:08)
[2024-08-11] MEDS: NEURONTIN 600 MG PO (09:08)
[2024-08-11] MEDS: MUCINEX 600 MG PO (09:08)
[2024-08-11] MEDS: THERAGRAN 1 TABLET PO (09:08)
[2024-08-11] MEDS: PROSCAR 5 MG PO (09:09)
[2024-08-11] MEDS: MIRAPEX 0.25 MG PO ×3 (09:09→17:46)
[2024-08-11] MEDS: VITAMIN D3 (cholecalciferol) 50 MCG PO (09:09)
[2024-08-11] MEDS: VITAMIN B-12 1000 MCG PO (09:09)
[2024-08-11] MEDS: PROTONIX 40 MG PO (09:09)
[2024-08-11] MEDS: FEOSOL 325 MG PO (09:10)
[2024-08-11] MEDS: LOW STRENGTH ASPIRIN 81 MG PO (09:10)
[2024-08-11] MEDS: LIORESAL 10 MG PO ×2 (09:13→12:42)
--- NOTE | 2024-08-11 10:35 | CM ---
Addendum entered by Anita Miller 08/11/24 15:54:
Hospitalist informed CM pt will d/c today
Seen pt and spouse at bedside, both agreeable to d/c.
Will need ambulance transport, forms provided to ammunition storage superintendent
IMM reviewed, copy given to pt, copy placed on chart
No CM needs identified
Plan: Home; no needs
Original Note:
Pt seen bedside. Initial assessment completed. Admitted for chest pain.
Pt reports that he lives w/ spouse in a [facility]- 2 steps to enter. Pt states he uses WC primarily
Pt stated he did go to SNF years ago but does not recall the name of the facility
Pt denies VN/PT hx
Address, point of contact and insurance verified
PCP: Dr. Lucas
Pharmacy: [facility]
Plan: CM will cont to follow hospital course
[2024-08-11 10:43] LABS: Glycohemoglobin (HgbA1c) 5.4 % (4.0-5.6)
[2024-08-11 11:57] VITALS: BP 145/68
[2024-08-11 12:15] LABS: Glucose - Point of Care 172 mg/dl (70-99)
[2024-08-11] MEDS: NOVOLOG FLEXPEN-LOW RESISTANCE 1 UNITS SC ×2 (12:41→17:45)
--- NOTE | 2024-08-11 15:44 | W.DS.TRANS ---
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
-
Discharge Instructions:
Discharge Diagnosis/Procedures COPD exacerbation
Diet Regular
Instructions:
Stand-Alone Forms:
Changes to Home Medications: Yes
Discharge Medications:
DC Medications w/original date entered in [facility]
atorvastatin 10 mg tablet 10 mg PO HS High cholesterol 05/24/17
cyanocobalamin (vitamin B-12) 1,000 mcg tablet 1,000 mcg PO DAILY Supplement 05/24/17
pramipexole 0.25 mg tablet 0.25 mg PO TID@0800,1200,1800 Neurological Condition 05/24/17
cholecalciferol (vitamin D3) 50 mcg (2,000 unit) tablet 2,000 unit PO DAILY Supplement 07/09/17
acetaminophen 500 mg tablet (Tylenol Extra Strength) 650 mg PO Q4H PRN mild pain/fever 08/21/17
albuterol sulfate 2.5 mg/3 mL (0.083 %) solution for nebulization 2.5 mg inhalation R TID Lung/breathing issues 09/10/17
baclofen 10 mg tablet 10 mg PO TID@0800,1200,2200 SPASM 02/20/18
ondansetron HCl 4 mg tablet 8 mg PO Q8H PRN nausea/vomiting 02/20/18
ferrous sulfate 325 mg (65 mg iron) tablet (FeroSul) 325 mg PO DAILY Supplement 06/14/21
multivitamin with folic acid 400 mcg tablet (Tab-A-Huseyin) 1 tab PO DAILY Supplement 06/14/21
finasteride 5 mg tablet 5 mg PO DAILY prostate issue 07/11/22
gabapentin 600 mg tablet 600 mg PO DAILY Pain 07/11/22
omeprazole 40 mg capsule,delayed release 40 mg PO DAILY Gastrointestinal issue 07/11/22
fluticasone fur. 100 mcg-umeclid 62.5 mcg-vilant 25 mcg inhalat.powder (Trelegy Ellipta) 1 inh inhalation DAILY Lung/breathing issues 10/24/22
baclofen 10 mg tablet 5 mg PO QPM Spasm 05/07/23
diazepam 2 mg tablet 2 - 4 mg (1 - 2 x 2 mg) PO BID PRN muscle spasm #10 tabs 05/07/23
docusate sodium 100 mg capsule (Colace) 100 mg PO Q48H Constipation 05/07/23
guaifenesin 600 mg tablet, extended release 12 hr (Mucinex) 600 mg PO BID Congestion 05/07/23
pramipexole 0.5 mg tablet 0.5 mg PO HS Neurological Condition 05/07/23
aspirin 81 mg chewable tablet 81 mg PO DAILY Blood Clot Prevention/Tx 09/26/23
prednisone 10 mg tablet 10 mg PO DIRECTED #30 tabs 08/11/24
Home Medication Changes
Prednisone taper
Pending Results: No
[2024-08-11 15:49] VITALS: BP 152/73
[2024-08-11 16:53] LABS: Glucose - Point of Care 164 mg/dl (70-99)
[2024-08-11] MEDS: LOVENOX SC (17:46)
[2024-08-11] MEDS: LIORESAL 5 MG PO (17:46)
== END 2024-08-11 19:35 | disposition home or self-care (01) | DRG 192 ==
LOC: 4 EAST ACU 10:18
PROVIDERS: Emergency Medicine; Nurse Practitioner Gerontology; ADMITTING PHYSICIAN Internal Medicine; CONSULT PHYSICIAN Internal Medicine; EMERGENCY PHYSICIAN Emergency Medicine; FAMILY PHYSICIAN Family Medicine
DX: J44.1 Chronic obstructive pulmonary disease with (acute) exacerbation (principal); G35 Multiple sclerosis; K21.9 Gastro-esophageal reflux disease without esophagitis; E78.00 Pure hypercholesterolemia, unspecified; R56.9 Unspecified convulsions; N40.0 Benign prostatic hyperplasia without lower urinary tract symptoms; Z74.01 Bed confinement status; Z99.3 Dependence on wheelchair; Z91.040 Latex allergy status; Z88.2 Allergy status to sulfonamides; Z88.1 Allergy status to other antibiotic agents; Z87.891 Personal history of nicotine dependence; Z87.01 Personal history of pneumonia (recurrent); Z86.73 Personal history of transient ischemic attack (TIA), and cerebral infarction without residual deficits; Z79.899 Other long term (current) drug therapy; Z79.82 Long term (current) use of aspirin; Z79.51 Long term (current) use of inhaled steroids; Z11.52 Encounter for screening for COVID-19
CPT/HCPCS: 71045; 80053; 81003; 81015; 82962; 83036; 83605; 84145; 84484; 85025; 85379; 87040; 87502; 87807; 87811; 92610; 93005; 93306; 94640; 96374; 99285

== ENCOUNTER 2025-02-14 13:35 | Emergency (ER) | payer MEDICARE, BC, SELFPAY ==
[2025-02-14 13:36] VITALS: BP 179/107
--- NOTE | 2025-02-14 15:54 | ED.GENMED ---
History of Present Illness
General
Chief Complaint: Dizziness
Source: patient and spouse
Exam Limitations: none
Time Seen by Provider: 02/14/25 15:39
History of Present Illness
History of Present Illness:
See MDM
Past History
Past History
ED Past Medical History: COPD, GERD, Seizures and Other (Multiple sclerosis, esophageal ulcers with upper GI bleed multiple episodes. Aspiration pneumonia, , prostatic hypertrophy, wheelchair-bound, skin cancer, history of alcohol abuse)
ED Past Surgical History: Other (Port-A-Cath, PEG tube, hemorrhoidectomy)
Social History
Tobacco: Former smoker
Alcohol: Former
Drug: None
Personal:
Living: assisted living
Employment: Retired
Family History
Family History: Other (Noncontributory)
Phy Exam
Physical Exam
Physical Exam:
See MDM
Course
Orders/Labs/Results
Orders:
Orders
02/14/25 13:36
Electrocardiogram (*1) Urgent
Reason for Study: Vertigo / Dizzy
EKG- Treatment ONCE
02/14/25 15:52
Pt Eval And Treat Urgent
Treatment: Vestibulotherapy
Activity Level: Ambulate
02/14/25 15:53
CT Head W/o Iv Contrast Urgent
Comment:
Reason For Exam: dizzy
0.9% Sodium Chloride 500 ml [Nss] 500 ml IV BOLUS
02/14/25 16:41
Complete Blood Count/With Diff Urgent
02/14/25 17:26
Albuterol Nebs [Ventolin Nebules] 2.5 mg INH R NOW STA
Baclofen [Lioresal] 10 mg PO NOW STA
Pramipexole [Mirapex] 0.25 mg PO NOW STA
02/14/25 17:47
Urinalysis Reflex To Culture Urgent
Date Specimen was Collected: 02/14/25
Time Specimen was Collected: 17:22
Urine Microscopic Reflex Cult Urgent
Urine Culture Urgent
[place] Source: U
Specimen Description:
Date Specimen was Collected: 02/14/25
Time Specimen was Collected: 17:22
02/14/25 17:59
Comprehensive Metabolic Panel Urgent
02/14/25 19:19
Cephalexin Monohydrate [Keflex] 500 mg PO NOW STA
Abnormal Lab Results
02/14/25 02/14/25
16:41 17:47
WBC 13.7 H 10^3/uL
(4.8-10.8)
Abs Immat Gran (auto) 0.1 H 10^3/uL
(0-0.05)
Absolute Neuts (auto) 11.8 H 10^3/uL
(1.4-6.5)
Absolute Lymphs (auto) 1.0 L 10^3/uL
(1.2-3.4)
Absolute Monos (auto) 0.7 H 10^3/uL
(0.1-0.6)
Neutrophils % 86.3 H %
(42.2-75.2)
Lymphocytes % 7.0 L %
(20.5-51.1)
Leukocyte Esterase Rfl 2+ A
(Negative)
Urine WBC (Reflex) 11-15 A /HPF
(0-5)
Urine Bacteria (Reflex) Few A
(Negative)
Urine Albumin (Reflex) 3+ A
(Neg - Trace)
02/14/25 16:41
02/14/25 17:59
Vital Signs
Initial and Last Documented VS:
Initial Vital Signs
Temp Pulse Resp BP Pulse Ox
98.2 F 85 16 179/107 95
02/14/25 13:36 02/14/25 13:36 02/14/25 13:36 02/14/25 13:36 02/14/25 13:36
Last Documented Vital Signs
Temp Pulse Resp BP Pulse Ox
98.2 F 81 17 167/90 94
02/14/25 13:36 02/14/25 17:00 02/14/25 17:00 02/14/25 16:25 02/14/25 17:00
MDM/Problems Addressed
Differential Diagnosis Includes:
Note:
CHIEF COMPLAINT(S)
Dizziness for two months, particularly when rolling over or changing positions.
HISTORY OF PRESENT ILLNESS
The patient is an 84-year-old male who presents with a two-month history of dizziness, primarily when changing positions, such as rolling over. The family caregiver noted that the dizziness is especially prevalent during incontinence care when the
patient is rolled. The patients family doctor had initially prescribed Meclizine, but it provided no relief. The dizziness has reportedly worsened over time, now occurring even when the patient is seated. The caregiver differentiates between
dizziness and vertigo, with the room-spinning sensation confirmed as vertigo. The patient displayed no signs of dizziness during head movement maneuvers conducted in the examination. However, lying down to the left reproduced the dizziness.
PAST MEDICAL AND SURIGICAL HISTORY
Incontinence is noted in the context of the patients current condition, but further specifics on past medical or surgical history were not identified in the conversation.
MEDICATIONS
The patient has been taking Meclizine for dizziness without effective relief.
PHYSICAL EXAM
General: Alert, no acute distress.
Skin: Warm, dry.
Head: Normocephalic, atraumatic
Neck: Appears supple, trachea midline.
Eyes, Ears, Nose, Mouth, and Throat: Oral mucosa moist.
Cardiovascular: No signs of cyanosis. Regular rate and rhythm
Respiratory: Respirations are non-labored.
Abdomen: Non-distended
Musculoskeletal: No deformities
Neurological: No focal neurological deficit observed.. Normal finger-nose bilaterally. Dizziness is reproduced when lying down on his
Psychiatric: Cooperative, appropriate mood and affect.
PLAN
1. Avoid benzodiazepines as this is part of his allergy list
2. Conduct blood tests, an Electrocardiogram (EKG), and imaging to rule out any serious underlying conditions.
3. Use positional maneuvers to reproduce symptoms for better assessment and diagnosis.
DIFFERENTIAL DIAGNOSIS
The Differential Diagnosis includes, in no particular order and is not limited to:
1. Benign Paroxysmal Positional Vertigo (BPPV)
2. Vestibular Neuritis
3. Labyrinthitis
4. Stroke or Transient Ischemic Attack (TIA)
5. Medication side effects
6. Orthostatic Hypotension
7. Menieres Disease
8. Dehydration
9. Inner ear infection
10. Anxiety-related dizziness
EKG
My independent EKG interpretation is:
- Rhythm: Sinus rhythm
- Note: Artifact noted
- [place]: Normal axis
- Abnormalities: No ST-elevation myocardial infarction (STEMI) detected
CARE-UPDATE
02/14/25 - 16:32
Pt reports experiencing some relief and feeling somewhat better following vestibular therapy conducted by physical therapy.
CARE-UPDATE
02/14/25 - 19:20
The patient reports feeling better. A urinary analysis suggests a UTI, and cephalexin is prescribed due to its compatibility with the patients allergy profile. Despite the elevated white blood cell count, the patient declined admission, expressing
comfort with outpatient care.
Disposition:
SUMMARY OF ENCOUNTER
The patient, an 84-year-old male, was seen in the emergency department presenting with dizziness, especially when changing positions, linked to vertigo symptoms. Vestibular therapy provided in the ED led to significant improvement in his condition.
A CT scan of the head was performed and found no acute abnormalities. A urinary analysis indicated a possible urinary tract infection (UTI).
DISPOSITION
The patient is discharged home as he feels comfortable managing his condition with outpatient care.
INDEPENDENT REVIEW OF LABS AND INTERPRETATION OF TESTS
My independent review of the CT head indicates no acute abnormalities.
A urinary analysis suggests a urinary tract infection.
PATIENT EDUCATION AND COUNSELING
The patient was informed about the outcomes of the CT scan and the urinary analysis. Counseling on managing the UTI with prescribed antibiotics was provided, emphasizing completing the full course and monitoring symptoms.
FOLLOW-UP INSTRUCTIONS
Please call the office immediately to schedule a follow-up visit for further monitoring and care.
MEDICATION RECONCILIATION
Cephalexin was prescribed for the treatment of the urinary tract infection.
MEDICAL DECISION MAKING
-Complexity of Data Reviewed:
Chronic conditions affecting care include vertigo and incontinence. Consideration of differential diagnoses like Benign Paroxysmal Positional Vertigo (BPPV), vestibular neuritis, labyrintitis, stroke or TIA, medication side effects, and orthostatic
hypotension among others.
-Data:
Category 1:
My independent interpretation of the CT head indicates no acute abnormalities. Clinical information was obtained from an independent historian, with discussion held with the patients family caregiver. Lab tests reviewed include the urinary analysis
suggesting a UTI.
Category 3:
Discussion of management with the patients primary care provider regarding the findings and the management plan.
-Risk:
Prescription medication was considered and prescribed: Cephalexin for UTI treatment. Consideration of Admission/Observation: Escalation of care including admission/observation was considered given the complexity and risk of the patients presenting
complaint, exam findings, and underlying comorbidities. However, ultimately I feel the patient is safe for outpatient management with close follow-up. Reasoning: Work-up reassuring, does not reveal any acute life/organ threatening processes,
patients symptoms well controlled upon reevaluation, reexamination is reassuring, vitals are stable, patient agreeable with discharge, reliable for follow-up.
DIAGNOSIS
Dizziness and giddiness, R42
Urinary tract infection, N39.0
*Pulse Oximetry
SaO2: 95
Oxygen Mode of Delivery: Room air
Patient hypoxic: no
*Critical Care Note
Total Time (30-74mins, 75-104mins- exclusive of procedures): Not Applicable
ED Attending Note
-
Portions of this chart may have been created with voice recognition software.� Occasional wrong word or��sound alike� substitutions may have occurred due to the inherent limitations of voice recognition software.
Discharge Plan
Departure
Patient Disposition: Home (Routine Discharge)
Date of Disposition: 02/14/25
Time of Disposition: 19:21
Patient with high blood pressure during this ER visit?: Yes
Discharge Problem:
Acute UTI, Vertigo
Instructions: Vertigo (a Type of Dizziness) (DC)
Prescriptions:
New
cephalexin 500 mg capsule
500 mg PO BID 7 Days Qty: 14 0RF
No Action
atorvastatin 10 MG tablet
10 mg PO HS
cyanocobalamin (vitamin B-12) 1,000 MCG tablet
1,000 mcg PO DAILY
pramipexole 0.25 MG tablet
0.25 mg PO TID@0800,1200,1800
cholecalciferol (vitamin D3) 2,000 UNITS tablet
2,000 unit PO DAILY
acetaminophen [Tylenol Extra Strength] 500 MG tablet
650 mg PO Q4H PRN (Reason: mild pain/fever)
albuterol sulfate 2.5 MG/3 ML solution for nebulization
2.5 mg inhalation R TID
ondansetron HCl 4 MG tablet
8 mg PO Q8H PRN (Reason: nausea/vomiting)
baclofen 10 MG tablet
10 mg PO TID@0800,1200,2200
multivitamin with folic acid [Tab-A-Huseyin] 1 TABLET tablet
1 tab PO DAILY
ferrous sulfate [FeroSul] 325 MG tablet
325 mg PO DAILY
gabapentin 600 mg tablet
600 mg PO DAILY
omeprazole 40 mg capsule,delayed release(DR/EC)
40 mg PO DAILY
finasteride 5 mg tablet
5 mg PO DAILY
Trelegy Ellipta 100-62.5-25 mcg Blister With Device
1 inh INHALATION DAILY
pramipexole 0.5 mg Tablet
0.5 mg PO HS
baclofen 10 mg Tablet
5 mg PO QPM
docusate sodium [Colace] 100 mg Capsule
100 mg PO Q48H
guaifenesin [Mucinex] 600 mg Tablet Extended Release 12hr
600 mg PO BID
diazepam 2 mg tablet
2 - 4 mg PO BID PRN (Reason: muscle spasm) Qty: 10 0RF
aspirin 81 mg Tablet,Chewable
81 mg PO DAILY
prednisone 10 mg tablet
10 mg PO DIRECTED Qty: 30 0RF
Rx Instructions:
Start at 40 mg and decrease by 10 mg every 72 hours
Referrals:
Ashish Lucas DO [Family Provider, Family Practice]
Activity Restrictions/Additional Instructions:
Please return for any worsening symptoms.
You may return at any time if you have further concerns.
Please follow up with your doctor at the first available appointment, preferably this week.
Thank you for choosing [facility].
Interventions
Interventions:
*Risk Screen - Suicide Last Done: 02/14/25 13:39
*General Assessment Last Done: 02/14/25 17:01
*Neglect/Abuse Screening Last Done: 02/14/25 13:39
*ED- Fall Risk Assessment Last Done: 02/14/25 17:01
*ED COVID-19 Vaccine History Last Done: 02/14/25 17:01
ED- Neurological Assessment Last Done: 02/14/25 16:00
Discharge Date and Time
Print Language: [place]
[2025-02-14 16:14] VITALS: BMI 27.3
[2025-02-14 16:25] VITALS: BP 167/90
[2025-02-14 16:47] LABS: Hematocrit 47.2 % (39.0-52.0); Hemoglobin 15.9 g/dL (13.0-18.0); Mean Corp Hgb Conc. 33.7 g/dL (33.0-37.0); Mean Corpuscular Volume 88.6 fL (80.0-94.0); Nucleated Red Blood Cells % 0 % (-); Platelet Count 212 10^3/uL (130-400); Red Cell Dist. Width 13.5 % (11.5-14.5)
[2025-02-14] MEDS: NSS 500 IV (17:14)
[2025-02-14] MEDS: LIORESAL 10 MG PO (17:41)
[2025-02-14] MEDS: MIRAPEX 0.25 MG PO (17:41)
[2025-02-14] MEDS: VENTOLIN NEBULES 2.5 MG INH (17:41)
[2025-02-14 17:54] LABS: Urine Character Clear (Clear)
[2025-02-14 18:12] LABS: Urine Red Blood Cell 0-2 /HPF (0-2); Urine Squamous Cell 0-2 /LPF (Few)
[2025-02-14 18:26] LABS: ALT (SGPT) 22 U/L (0-50); AST (SGOT) 27 U/L (17-59); Albumin 3.9 g/dl (3.5-5.0); Alkaline Phosphatase 83 U/L (38-126); Blood Urea Nitrogen 17 mg/dl (9-20); Calcium 9.7 mg/dl (8.4-10.2); Carbon Dioxide 26 mmol/L (22-30); Chloride 106 mmol/L (98-107); Estimated Creatinine Clearance 51 ml/min; Glucose 83 mg/dl (70-99); Potassium 4.6 mmol/L (3.5-5.1); Sodium 138 mmol/L (135-145); Total Protein 6.7 g/dl (6.3-8.2); eGFR > 60.00
[2025-02-14] MEDS: KEFLEX 500 MG PO (19:55)
== END 2025-02-14 21:10 | disposition home or self-care (01) ==
LOC: EMR 13:35
PROVIDERS: EMERGENCY PHYSICIAN Student in an Organized Health Care Education/Training Program; FAMILY PHYSICIAN Family Medicine
DX: N39.0 Urinary tract infection, site not specified (principal); R42 Dizziness and giddiness; G35 Multiple sclerosis; J44.9 Chronic obstructive pulmonary disease, unspecified; Z87.891 Personal history of nicotine dependence; Z85.828 Personal history of other malignant neoplasm of skin; Z99.3 Dependence on wheelchair
CPT/HCPCS: 94640; 99284; 70450; 80053; 81003; 81015; 85025; 87086; 93005